=== PATIENT | female | born 1960 | race African-American/Black ===

== ENCOUNTER 2022-03-07 15:55 | Emergency (ER) | payer SELFPAY ==
[2022-03-07] MEDS ORDERED: Sodium Chloride 0.9% 10 ML Syringe FLUSH PRN (16:54)
[2022-03-07] MEDS ORDERED: Labetalol 100 MG/20 ML MDV IVPUSH ONE (16:55)
[2022-03-07 17:23] LABS: CORONAVIRUS COVID-19 NAA NEGATIVE (NEGATIVE)
[2022-03-07 17:39] LABS: ESTIMATED GFR 16 mL/min (>60)
[2022-03-07] MEDS ORDERED: Aspirin 81 MG Tab.Chew PO ONE (19:05)
[2022-03-07] MEDS ORDERED: Nitroglycerin/D5W 25 MG/250 ML BOTTLE IV SCH (19:15)
[2022-03-07] MEDS ORDERED: Heparin Sodium 5,000 Units/ML Vial IVPUSH ONE (19:19)
[2022-03-07] MEDS ORDERED: Heparin Sodium/D5W 25,000 UNITS/500 ML BAG IV SCH (19:30)
== END 2022-03-07 22:22 ==
LOC: JD.ED 15:55
DX: I21.4 Non-ST elevation (NSTEMI) myocardial infarction (principal); I11.0 Hypertensive heart disease with heart failure; I50.9 Heart failure, unspecified; N17.9 Acute kidney failure, unspecified; R09.02 Hypoxemia; Z20.822 Contact with and (suspected) exposure to COVID-19
CPT/HCPCS: 0240U; 36415; 71045; 80053; 83735; 83880; 84484; 85025; 85379; 86140; 93005; 96365; 96366; 96368; 96375; 96376; 99285; A9270; J1644; J3490